=== PATIENT | female | born 1940 ===

== ENCOUNTER 2017-05-13 07:08 | Day surgery (SDC) | payer OTHER ==
[~2017-05-13] VITALS: Ht 162.6 cm; Wt 76.2 kg
[2017-05-13] VITALS (17 sets, daily range): BP systolic 102–165; BP diastolic 46–76
[~2017-05-13 07:08] MED LIST: AMIODARONE HCL100 MG ORAL; AMLODIPINE BESYL5 MG ORAL; CENTRUM WOMEN1 EACH PO; LEVOTHYROXINE50 MCG ORAL; LOSARTAN POTAS100 MG ORAL; XARELTO20 MG ORAL; ceFAZolin 1gm in D5W 55ml IVP ONE; celeBREX 200mg Cap **SURGERY PATIENTS ONLY ORAL ONE; oxyCONTIN 20mg tab ORAL ONE
[2017-05-13] MEDS ORDERED: Midazolam 2mg/2ml Inj ONE (07:09)
[2017-05-13] MEDS ORDERED: LR 1000ml ONE (07:09)
[2017-05-13] MEDS ORDERED: Propofol 10mg/ml 20ml IV ONE ×2 (07:09→10:50)
[2017-05-13] MEDS ORDERED: NS Irrig 4000ml IRRIG ONE (07:09)
[2017-05-13] MEDS ORDERED: fentaNYL 100 mcg/2 mL IV ONE (07:09)
--- NOTE | 2017-05-13 08:14 | Pre-Procedure Note/Attestation ---
Pre-Procedure Note/Attestation Complete Prior to Procedure Planned Procedure: left Procedure Narrative: shoulder arthroscopic rct repair, sad Indications for Procedure Pre-Operative Diagnosis: left shoulder rct, impingement Attestation I attest that I discussed the nature of the procedure; its benefits; risks and complications; and alternatives (and the risks and benefits of such alternatives ), prior to the procedure, with the patient (or the patient's legal customer service representative teacher). I attest that, if there was a reasonable possibility of needing a blood transfusion, the patient (or the patient's legal customer service representative teacher) was given the [facility] standardized written summary, pursuant to the [place] Blood Safety Act ([place] Health and Safety Code # 1645, as amended). I attest that I re-evaluated the patient just prior to the surgery and that there has been no change in the patient's H&P, except as documented below: NADINE MILES May 13, 2017 08:14
--- NOTE | 2017-05-13 08:14 | Operative Note - PDOC ---
Operative Note Operative Note Pre-op Diagnosis: left shoulder rct, impingement Procedure: see op report Post-op Diagnosis: same as pre-op plus Anesthesia: regional Specimen: none Complications: none Condition: stable Estimated Blood Loss: none Implant(s) used?: Yes NADINE MILES May 13, 2017 08:14
[2017-05-13] MEDS ORDERED: Norco 5mg/325mg tab ORAL PRN (08:15)
[2017-05-13] MEDS ORDERED: D5 1/2NS 1,000 ML IV SCH (08:15)
[2017-05-13] MEDS ORDERED: Tylenol #3 tab (300mg/30mg) ORAL PRN (08:15)
[2017-05-13] MEDS ORDERED: HYDROmorphone 1mg/ml Carpuject SUBQ PRN (08:15)
[2017-05-13] MEDS ORDERED: celeBREX 200mg Cap **SURGERY PATIENTS ONLY ORAL ONE (09:41)
[2017-05-13] MEDS ORDERED: Ropivacaine 5mg/ml Vial 20ml INJ ONE (09:42)
[2017-05-13] MEDS ORDERED: EPINEPHrine 1mg/1ml Amp ONE (09:42)
[2017-05-13] MEDS ORDERED: Bupivacaine w/Epi 0.5% 30ml Vial INJ ONE (09:42)
[2017-05-13] MEDS ORDERED: LR 1000ml 1,000 ML IVLG SCH (11:33)
--- NOTE | 2017-05-13 11:33 | Anethesia Preoperative Eval ---
Anesthesia Pre-op PMH/ROS General Date of Evaluation: May 13, 2017 Time of Evaluation: 10:10 Anesthesiologist: Dorinda ASA Score: ASA 3 Mallampati Score Class I : Soft palate, uvula, fauces, pillars visible Class II: Soft palate, uvula, fauces visible Class III: Soft palate, base of uvula visible Class IV: Only hard plate visible Mallampati Classification: Class II Surgeon: David Diagnosis: L shoulder pain Surgical Procedure: L shoulder arthroscopy Anesthesia History: none Family History: no anesthesia problems Allergies: Coded Allergies: No Known Allergies (Unverified , 05/12/17) Medications: see eMAR Past Medical History Cardiovascular: Reports: HTN, arrhythmia - Afib, Denies: CAD, MA, other, valve dz Pulmonary: Denies: COPD, OCTAVIA, asthma, other Gastrointestinal/Genitourinary: Reports: GERD, Denies: CRI, ESRD, other Neurologic/Psychiatric: Denies: CVA, TIA, dementia, depression/anxiety, other Endocrine: Reports: hypothyroidism, Denies: DM, other, steroids HEENT: Denies: VIEJAS (L), VIEJAS (R), cataract (L), cataract (R), glaucoma, other Hematology/Immune: Reports: bleeding disorder - anticoagulated, Denies: DVT, anemia, other Musculoskeletal/Integumentary: Reports: DJD, Denies: DDD, OA, RA, edema, other PMH Narrative: as above PSxH Narrative: Hysterectomy, cholecystectomy Anesthesia Pre-op Phys. Exam Physician Exam Last Vital Signs Date Time Temp Pulse Resp B/P Pulse Ox O2 Delivery O2 Flow Rate FiO2 05/13/17 08:24 97.3 54 17 165/76 98 Room Air Constitutional: NAD Neurologic: CN 2-12 intact Cardiovascular: RRR, no M/R/G Respiratory: CTA Gastrointestinal: S/NT/ND Airway Exam Mallampati Score: Class II MO: limited Neck: stiff ROM: limited Teeth: missing Dentures: no lower, no upper Anesthesia Pre-op A/P Labs see chart Studies Pre-op Studies: EKG - NSR Risk Assessment & Plan Assessment: ASA 3 Plan: GA with LMA brachial plexus block for p/op pain control Status Change Before Surgery: No Pre-Antibiotics Drug: Ancef 1gr. Given Within 1 Hr of Incision: Yes Time Given: 11:02 ALBERTO DC M.D. May 13, 2017 11:33
[2017-05-13] MEDS ORDERED: Midazolam 2mg/2ml Inj IVP PRN (11:45)
[2017-05-13] MEDS ORDERED: Ketorolac 30mg Inj IV PRN (11:45)
[2017-05-13] MEDS ORDERED: DiphenhydrAMINE 50mg/ml Inj IVP PRN (11:45)
[2017-05-13] MEDS: Hydromorphone 0.5mg/0.5ml inj IVP PRN ×2 (12:15→12:33)
--- NOTE | 2017-05-13 13:55 | Immediate Post-Op Evaluation ---
Immediate Post-Op Evalulation Immediate Post-Op Evalulation Procedure: L shoulder arthroscopy RC repair Date of Evaluation: May 13, 2017 Time of Evaluation: 12:08 IV Fluids: 600 Blood Products: none Estimated Blood Loss: min Urinary Output: none Blood Pressure Systolic: 124 Blood Pressure Diastolic: 57 Pulse Rate: 62 Respiratory Rate: 20 O2 Sat by Pulse Oximetry: 99 Temperature (Fahrenheit): 97.5 Pain Score (1-10): 2 Nausea: No Vomiting: No Complications none Patient Status: reacts, patent, none Hydration Status: adequate ALBERTO DC M.D. May 13, 2017 13:55
--- NOTE | 2017-05-13 16:21 | 48 Hour Post Anesthesia Eval ---
Post Anesthesia Evaluation Procedure: L shoulder arthroscopy RC repair Date of Evaluation: May 13, 2017 Time of Evaluation: 16:20 Blood Pressure Systolic: 142 0: 72 Pulse Rate: 62 Respiratory Rate: 20 Temperature (Fahrenheit): 97.5 O2 Sat by Pulse Oximetry: 98 Airway: patent Nausea: No Vomiting: No Pain Intensity: 2 Hydration Status: adequate Cardiopulmonary Status: stable Mental Status/LOC: patient returned to baseline Follow-up Care/Observations: n/a Post-Anesthesia Complications: none Follow-up care needed: ready to discharge ALBERTO DC M.D. May 13, 2017 16:21
--- NOTE | 2017-05-13 23:01 | Operative Note - Dictated ---
DATE OF OPERATION: 05/13/2017 PREOPERATIVE DIAGNOSES: 1. Left shoulder full-thickness rotator cuff tear. 2. Impingement syndrome. POSTOPERATIVE DIAGNOSES: 1. Left shoulder full-thickness rotator cuff tear. 2. Impingement syndrome. PROCEDURES: 1. Left shoulder diagnostic arthroscopy with extensive intraarticular debridement. 2. Left shoulder arthroscopic rotator cuff repair. 3. Left shoulder subacromial decompression bursectomy. SURGEON: Salbador Hernandez M.D. ANESTHESIA: Interscalene with general. INDICATION FOR PROCEDURE: The patient is a pleasant 77-year-old female, who sustained an injury. She subsequently was diagnosed with full-thickness rotator cuff tear. She was indicative of operative fixation. Risks, limitations, expectations, and complications of the procedure were discussed in detail. All questions were addressed. DESCRIPTION OF PROCEDURE: An informed consent was obtained. The patient was brought to the operating room and placed under interscalene general anesthesia. The patient was then carefully placed in a beach-chair position. Left shoulder was prepped and draped in a sterile manner. Time-out was performed. Portal sites were injected with 0.25% Marcaine with epinephrine. Inferolateral stab incision was then made. Camera was then placed in the glenohumeral joint. Systematic tour of the shoulder was performed. There no significant chondral damage. The labral pathology, superior labrum appeared to be intact. There was complete tear of the footprint of the supraspinatus tendon. Shaver was then placed into the lateral portal and the bone lateral to the articular margin was debrided of any soft tissue. Camera was then repositioned in the subacromial space. Complete bursectomy and release of the coracoacromial ligament was performed. Acromioplasty was started from medial and lateral and completed posterior to anterior. Once that was done, an anchor was then placed just lateral to the articular margin. Two mattress sutures along with lateral row anchor were placed. The footprint of the rotator cuff was recreated and the rotator cuff moved as a unit. At this point, the instruments were removed. Portal sites were closed with 3-0 Monocryl sutures. Compression dressing was applied. The patient was awoken and taken to the recovery room with stable vital signs. EBL: Minimal. COMPLICATIONS: None. SPECIMENS: None. IMPLANTS: Two Biomet rotator cuff repair anchors. Salbador Hernandez M.D. DR: PARISA JOB#: [id number] CC:
== END 2017-05-13 14:55 | disposition home or self-care (01) ==
LOC: SUR 07:08
DX: S46.012A Strain of muscle(s) and tendon(s) of the rotator cuff of left shoulder, initial encounter (principal); M75.42 Impingement syndrome of left shoulder; V03.10XA Pedestrian on foot injured in collision with car, pick-up truck or van in traffic accident, initial encounter; Y92.520 Airport as the place of occurrence of the external cause; Y99.8 Other external cause status; E03.9 Hypothyroidism, unspecified; I10 Essential (primary) hypertension; E04.1 Nontoxic single thyroid nodule; K21.9 Gastro-esophageal reflux disease without esophagitis; M19.90 Unspecified osteoarthritis, unspecified site; I48.91 Unspecified atrial fibrillation; Z79.01 Long term (current) use of anticoagulants; Z90.49 Acquired absence of other specified parts of digestive tract; Z90.710 Acquired absence of both cervix and uterus
CPT/HCPCS: 29826; 29827; C1713; J0171; J0690; J1170; J1885; J2250; J2704; J2795; J3010; J7120; 94003; 94150